=== PATIENT | female | born 1995 | race Caucasian/White ===

== ENCOUNTER 2017-09-02 13:28 | Emergency (ER) | payer OTHER ==
[2017-09-02] MEDS: IBUPROFEN 800 MG TAB PO (14:11)
== END 2017-09-02 15:00 | disposition home or self-care (01) ==
LOC: FTE 13:28
DX: J32.9 Chronic sinusitis, unspecified (principal); J20.9 Acute bronchitis, unspecified
CPT/HCPCS: 71046; 99284-25

== ENCOUNTER 2018-06-24 23:28 | Emergency (ER) | payer OTHER ==
[2018-06-25 00:22] LABS: URINE BLOOD (Dip) POC 2+ (NEGATIVE); URINE GLUCOSE (Dip) POC Negative (NEGATIVE); URINE KETONES (Dip) POC Negative (NEGATIVE); URINE LEUKOCYTE EST (Dip) POC 3+ (NEGATIVE); URINE NITRITE (Dip) POC Negative (NEGATIVE); URINE TOTAL PROTEIN POC 2+ (NEGATIVE)
== END 2018-06-25 01:09 | disposition home or self-care (01) ==
LOC: FTE 23:28
DX: R30.0 Dysuria (principal); R51 Headache
CPT/HCPCS: 81003; 81025; 99283